=== PATIENT | female | born 1990 | race Hispanic/Latino ===

== ENCOUNTER 2018-11-01 22:20 | Emergency (ER) | payer SELFPAY ==
[~2018-11-01] VITALS: Ht 167.6 cm; Wt 56.7 kg
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
--- OUTSIDE RECORDS SUMMARY | 2018-11-01 22:25 | XMS REPORT | Summary of Care ---
Author Author [facility] Organization [facility] Address Unknown Phone Unavailable Encounter HQ Richard_jessica(FIN) [id number] Date(s): 04/06/16 - 04/07/16 [facility] [address] [place] [address]- Discharge Disposition: Elopement Attending Physician: Ravi Salvador MD Vital Signs Most recent to 1 oldest [Reference Range]: Height 170.18 cm (04/06/16 11:34 PM) Temperature Oral 98.6 DegF [96.4-99.1 DegF] (04/06/16 11:34 PM) Blood Pressure 119/78 mmHg [90-140/60-90 mmHg] (04/06/16 11:34 PM) Respiratory Rate 18 BRMIN [14-20 BRMIN] (04/06/16 11:34 PM) Peripheral Pulse 118 bpm Rate [60-100 bpm] *HI* (04/06/16 11:34 PM) Weight 70.909 kg (04/06/16 11:34 PM) Body Mass Index 24.48 m2 (04/06/16 11:34 PM) Problem List No data available for this section Allergies, Adverse Reactions, Alerts Substance Reaction Severity Status NKDA Active Medications acetaminophen 650 mg, 2 tab, Route: PO, Drug form: TAB, ONCE, Dosing Weight 70.909, kg, Priori ty: STAT, Start date: 04/06/16 23:46:00 IMAGING NURSE, Stop date: 04/06/16 23:46:00 IMAGING NURSE Notes: Do not exceed 4 gm/day. (Same as: Tylenol) Start Date: 04/06/16 Stop Date: 04/06/16 Status: Ordered diphtheria/pertussis, acel/tetanus adult 2 units-15.5 mcg-5 units/0.5 mL intramu scular suspension 0.5 mL, Route: IM, Drug Form: SUSP, Dosing Weight 70.909, kg, ONCE, STAT, Start date: 04/06/16 23:46:00 IMAGING NURSE, Stop date: 04/06/16 23:46:00 IMAGING NURSE Notes: (Tdap ) For Adolecent and Adult use For IM Use. Same as: Adacel (Tdap) Start Date: 04/06/16 Stop Date: 04/06/16 Status: Ordered Saline Flush 0.9% 10 mL, Route: IVP, Drug Form: INJ, Dosing Weight 70.909, kg, PRN, PRN Line Flush , Start date: 04/06/16 23:46:00 IMAGING NURSE, Duration: 30 day, Stop date: 05/06/16 23:45 :00 IMAGING NURSE Notes: Same as: BD Posiflush Sterile Start Date: 04/06/16 Stop Date: 04/07/16 Status: Discontinued Sodium Chloride 0.9% (Bolus) IV 1,000 mL, 2,000 ml/hr, Infuse Over: 0.5 hr, Route: IV, 1,000, Drug form: INJ, ON CE, Priority: STAT, Dosing Weight 70.909 kg, Start date: 04/06/16 23:46:00 IMAGING NURSE, Duration: 1 doses or times, Stop date: 04/06/16 23:46:00 IMAGING NURSE Start Date: 04/06/16 Stop Date: 04/06/16 Status: Ordered Results No data available for this section Immunizations No data available for this section Procedures No data available for this section Social History No data available for this section Assessment and Plan No data available for this section
--- OUTSIDE RECORDS SUMMARY | 2018-11-01 22:25 | XMS REPORT | CCD ---
Author Author Auto Generated Organization [facility] Address Unknown Phone Unavailable Care Team Providers Care Medical Communication Specialist Name Role Phone [place] CP Allergies, Adverse Reactions, Alerts Substance Reaction Status NKDA Active Medications Medication Instructions Start Date End Date Status Ambien 10 mg, 1 tab, Route: PO, Drug form: 04/15/2012 04/16/2012 Discontinued TAB, Bedtime, Dosing Weight 82.727, kg, PRN Insomnia, Start date: 04/15/12 2:20:00, Duration: 30 day, Stop date: 05/15/12 2:19:00 methylergonovine 0.2 mg, 1 mL, Route: IM, Drug form: 04/15/2012 04/16/2012 Discontinued INJ, PRN, Dosing Weight 82.727, kg, PRN Other -See Comment, Start date: 04/15/12 12:15:00, Duration: 30 day, Stop date: 05/15/12 13:14:00 ondansetron 4 mg, 2 mL, Route: IVP, Drug form: 04/15/2012 04/16/2012 Discontinued INJ, Q8H, Dosing Weight 82.727, kg, PRN Nausea & Vomiting, Start date: 04/15/12 12:15:00, Duration: 30 day, Stop date: 05/15/12 12:14:00 zolpidem 5 mg, 1 tab, Route: PO, Drug form: 04/15/2012 04/16/2012 Discontinued TAB, Bedtime, Dosing Weight 82.727, kg, PRN Sleep, Start date: 04/15/12 12:15:00, Duration: 30 day, Stop date: 05/15/12 12:14:00 Dermoplast 20% 1 spray, Route: TOP, PRN, Drug 04/15/2012 04/16/2012 Discontinued topical spray form: SPRY, PRN Irritation, Start date: 04/15/12 12:15:00, Duration: 30 day, Stop date: 05/15/12 13:14:00 lanolin topical 1 appl, Route: TOP, PRN, Drug form: 04/15/2012 04/16/2012 Discontinued OINT, PRN Other -See Comment, Start date: 04/15/12 12:15:00, Duration: 30 day, Stop date: 05/15/12 13:14:00 bisacodyl 10 mg, 1 supp, Route: OR, Drug 04/15/2012 04/16/2012 Discontinued form: SUPP, PRN, Dosing Weight 82.727, kg, PRN Other -See Comment, Start date: 04/15/12 12:15:00, Duration: 30 day, Stop date: 05/15/12 13:14:00 bisacodyl 15 mg, 3 tab, Route: PO, Drug form: 04/15/2012 04/16/2012 Discontinued ECTAB, Daily, Dosing Weight 82.727, kg, PRN Other -See Comment, Start date: 04/15/12 12:15:00, Duration: 30 day, Stop date: 05/15/12 12:14:00 docusate 100 mg, 1 cap, Route: PO, Drug 04/15/2012 04/16/2012 Discontinued form: CAP, BID, Dosing Weight 82.727, kg, PRN Constipation, Start date: 04/15/12 12:15:00, Duration: 30 day, Stop date: 05/15/12 12:14:00 Lactated Ringers IV 1,000 mL, Rate: 100 ml/hr, Infuse 04/15/2012 04/16/2012 Discontinued 1,000 mL over: 10 hr, Route: IV, kg, Total Volume: 1,000, Start date: 04/15/12 12:15:00, Duration: 30 day, Stop date: 05/15/12 12:14:00, PRN to maintain IV access Lactated Ringers 20 unit, 1,000 mL, Rate: 125 ml/hr, 04/15/2012 04/16/2012 Discontinued 1000ml+Pitocin 20 Infuse over: 8 hr, Dosing Weight units IV (Premix) 20 82.727, kg, Route: IV, Total unit Volume: 1,000 mL, Start date: 04/15/12 12:15:00, Duration: 2 day, Stop date: 04/17/12 12:14:00, Replace Every: 8 hr M-M-R II 0.5 ml, Route: SUB-Q, Drug Form: 04/15/2012 04/16/2012 Discontinued PDR/INJ, Dosing Weight 82.727, kg, ONCALL, Give only if patient rubella non-immune, Start date: 04/15/12 13:00:00, Duration: 1 doses or times acetaminophen 650 mg, 2 tab, Route: PO, Drug 04/15/2012 04/16/2012 Discontinued form: TAB, Q4H, Dosing Weight 82.727, kg, PRN Headache, Start date: 04/15/12 12:15:00, Duration: 30 day, Stop date: 05/15/12 12:14:00 ibuprofen 800 mg, 1 tab, Route: PO, Drug 04/15/2012 04/16/2012 Discontinued form: TAB, Q8H, Dosing Weight 82.727, kg, PRN Pain, Start date: 04/15/12 12:15:00, Duration: 30 day, Stop date: 05/15/12 12:14:00 1 tab, Route: PO, Drug Form: TAB, 04/16/2012 04/16/2012 Discontinued Multivitamins oral Dosing Weight 82.727, kg, Daily, tablet Start date: 04/16/12 9:00:00, Duration: 30 day, Stop date: 05/15/12 9:00:00 acetaminophen-hydroc 1 tab, Route: PO, Drug Form: TAB, 04/15/2012 04/16/2012 Discontinued odone 325 mg-5 mg Dosing Weight 82.727, kg, Q4H, PRN oral tablet Pain Score 1-3, Start date: 04/15/12 12:15:00, Duration: 30 day, Stop date: 05/15/12 12:14:00 acetaminophen-hydroc 2 tab, Route: PO, Drug Form: TAB, 04/15/2012 04/16/2012 Discontinued odone 325 mg-5 mg Dosing Weight 82.727, kg, Q4H, PRN oral tablet Pain Score 4-6, Start date: 04/15/12 12:15:00, Duration: 30 day, Stop date: 05/15/12 12:14:00 ondansetron 4 mg, 2 mL, Route: IVP, Drug form: 04/15/2012 04/15/2012 Discontinued INJ, Q8H, Dosing Weight 82.727, kg, PRN Nausea & Vomiting, Start date: 04/15/12 2:19:00, Duration: 30 day, Stop date: 05/15/12 2:18:00 methylergonovine 0.2 mg, 1 mL, Route: IM, Drug form: 04/15/2012 04/15/2012 Discontinued INJ, ONCALL, Dosing Weight 82.727, kg, Start date: 04/15/12 3:00:00, Duration: 30 day, Stop date: 05/15/12 3:59:00 lidocaine 1% 20 ml, Route: PERCUT, Drug Form: 04/15/2012 04/15/2012 Discontinued INJ, Dosing Weight 82.727, kg, PRN, PRN Other -See Comment, Start date: 04/15/12 2:19:00, Duration: 1 doses or times, Stop date: Limited # of times misoprostol 1,000 microgram, 5 tab, Route: OR, 04/15/2012 04/15/2012 Discontinued Drug form: TAB, ONCALL, Dosing Weight 82.727, kg, Start date: 04/15/12 3:00:00, Duration: 1 doses or times famotidine 20 mg, 2 mL, Route: IVP, Drug form: 04/15/2012 04/15/2012 Discontinued INJ, ONCALL, Dosing Weight 82.727, kg, Start date: 04/15/12 3:00:00, Duration: 30 day, Stop date: 05/15/12 3:59:00 Lactated Ringers 20 unit, 1,000 mL, Rate: 125 ml/hr, 04/15/2012 04/16/2012 Discontinued 1000ml+Pitocin 20 Infuse over: 8 hr, Dosing Weight units IV (Premix) 20 82.727, kg, Route: IV, Total unit Volume: 1,000 mL, Start date: 04/15/12 2:19:00, Duration: 2 day, Stop date: 04/17/12 2:18:00, Replace Every: 8 hr carboprost 250 microgram, 1 mL, Route: IM, 04/15/2012 04/15/2012 Discontinued Drug form: INJ ONCALL, Dosing Weight 82.727, kg, Start date: 04/15/12 3:00:00, Duration: 30 day, Stop date: 05/15/12 3:59:00 oxytocin-add to 20 unit, Route: INJ, Drug form: 04/15/2012 04/15/2012 Deleted current IV SOLNYOSVANYALL, Dosing Weight 82.727, kg, Start date: 04/15/12 3:00:00, Duration: 2 day, Stop date: 04/17/12 2:59:00 metoclopramide 10 mg, 2 mL, Route: IVP, Drug form: 04/15/2012 04/15/2012 Discontinued INJ ONCALL, Dosing Weight 82.727, kg, Start date: 04/15/12 3:00:00, Duration: 30 day, Stop date: 05/15/12 3:59:00 citric acid-sodium 30 ml, Route: PO, Drug Form: SOLN, 04/15/2012 04/15/2012 Discontinued citrate Dosing Weight 82.727, kg, ONCALL, Start date: 04/15/12 3:00:00, Duration: 30 day, Stop date: 05/15/12 3:59:00 terbutaline 0.25 mg, 0.25 mL, Route: SUB-Q, 04/15/2012 04/15/2012 Discontinued Drug form: INJ, PRN, Dosing Weight 82.727, kg, PRN Other -See Comment, Start date: 04/15/12 2:19:00, Duration: 1 doses or times, Stop date: Limited # of times butorphanol 1 mg, 1 mL, Route: IVP, Drug form: 04/15/2012 04/15/2012 Discontinued INJ, Q2H, Dosing Weight 82.727, kg, PRN Pain Score 1-5, Start date: 04/15/12 2:19:00, Duration: 30 day, Stop date: 05/15/12 2:18:00 ibuprofen 800 mg, 1 tab, Route: PO, Drug 04/15/2012 04/15/2012 Discontinued form: TAB, Q8H, Dosing Weight 82.727, kg, PRN Other -See Comment, Start date: 04/15/12 2:19:00, Duration: 30 day, Stop date: 05/15/12 2:18:00 acetaminophen-hydroc 2 tab, Route: PO, Drug Form: TAB, 04/15/2012 04/15/2012 Discontinued odone 325 mg-5 mg Dosing Weight 82.727, kg, Q4H, PRN oral tablet Pain Score 4-6, Start date: 04/15/12 2:19:00, Duration: 30 day, Stop date: 05/15/12 2:18:00 acetaminophen-hydroc 1 tab, Route: PO, Drug Form: TAB, 04/15/2012 04/15/2012 Discontinued odone 325 mg-5 mg Dosing Weight 82.727, kg, Q4H, PRN oral tablet Pain Score 1-3, Start date: 04/15/12 2:19:00, Duration: 30 day, Stop date: 05/15/12 2:18:00 butorphanol 2 mg, 1 mL, Route: IVP, Drug form: 04/15/2012 04/15/2012 Discontinued INJ, Q2H, Dosing Weight 82.727, kg, PRN Pain Score 6-10, Start date: 04/15/12 2:19:00, Duration: 30 day, Stop date: 05/15/12 2:18:00 Lactated Ringers IV 1,000 mL, Rate: 125 ml/hr, Infuse 04/15/2012 04/15/2012 Discontinued 1,000 mL over: 8 hr, Route: IV, kg, Total Volume: 1,000, Start date: 04/15/12 2:19:00, Duration: 30 day, Stop date: 05/15/12 2:18:00 Lactated Ringers 1,000 mL, Rate: 100 ml/hr, Infuse 04/15/2012 04/15/2012 Discontinued Injection IV 1,000 over: 10 hr, Route: IV, kg, Total mL Volume: 1,000, Bolus for regional anesthesia per unit protocol, Start date: 04/15/12 2:19:00, Duration: 30 day, Stop date: 05/15/12 2:18:00 Ambien 10 mg oral 10 mg, 1 tab, PO, Bedtime, PRN, for 04/14/2012 Ordered tablet sleep, Substitution Allowed, TAB 1 oral Substitution Allowed, Maintenance 04/14/2012 Ordered capsule Lactated Ringers 20 unit, 1,000 mL, Rate: Titrate, 04/15/2012 04/16/2012 Discontinued 1000ml+Pitocin 20 Dosing Weight 82.727, kg, Route: units IV (Premix IV, Total Volume: 1,000 mL, Start Titrate) 20 unit date: 04/15/12 3:36:00, Duration: 2 day, Stop date: 04/17/12 3:35:00, Replace Every: 24 hr ibuprofen 800 mg 800 mg, 1 tab, PO, Q8H, PRN, 30 04/16/2012 Ordered oral tablet tab, Pain, Substitution Allowed, TAB Vital Signs Most recent to oldest [Reference Range]: 1 Height 170.18 cm (04/15/2012 02:15:00) Weight 82.727 kg (04/15/2012 02:15:00) Results BLOOD BANK RESULTS Most recent to oldest [Reference Range]: 1 2 ABO/Rh B POS *Unknown* (04/15/2012 02:15:00) Antibody Scrn Negative (04/15/2012 02:15:00) Rhig Reqd See Note 1 (04/15/2012 02:15:00) 1Result Comment: 04/15/2012 03:16 [id number] This patient is not a candidate for Rh(O)D immune globulin. HEMATOLOGY Most recent to oldest [Reference Range]: 1 2 WBC [3.7-10.4 K/CMM] 9.8 K/CMM (04/16/2012 06:20:00) 10.9 K/CMM *HI* (04/15/2012 02:15:00) RBC [4.20-5.40 M/CMM] 3.93 M/CMM *LOW* (04/16/2012 06:20:00) 4.67 M/CMM (04/15/2012 02:15:00) Hgb [12.0-16.0 g/dL] 11.1 g/dL *LOW* (04/16/2012 06:20:00) 13.0 g/dL (04/15/2012 02:15:00) Hct [36.0-48.0 %] 34.0 % *LOW* (04/16/2012 06:20:00) 39.7 % (04/15/2012 02:15:00) MCV [81.0-99.0 fL] 86.4 fL (04/16/2012 06:20:00) 84.9 fL (04/15/2012 02:15:00) MCH [27.0-31.0 pg] 28.3 pg (04/16/2012 06:20:00) 27.9 pg (04/15/2012 02:15:00) MCHC [32.0-36.0 g/dL] 32.7 g/dL (04/16/2012 06:20:00) 32.8 g/dL (04/15/2012 02:15:00) RDW [11.5-14.5 %] 16.9 % *HI* (04/16/2012 06:20:00) 16.5 % *HI* (04/15/2012 02:15:00) Platelet [133-450 K/CMM] 212 K/CMM (04/16/2012 06:20:00) 262 K/CMM (04/15/2012 02:15:00) MPV [7.4-10.4 fL] 7.6 fL (04/16/2012 06:20:00) 7.8 fL (04/15/2012 02:15:00) Segs [45.0-75.0 %] 64.6 % (04/16/2012 06:20:00) 75.8 % *HI* (04/15/2012 02:15:00) Lymphocytes [20.0-40.0 %] 24.7 % (04/16/2012 06:20:00) 17.2 % *LOW* (04/15/2012 02:15:00) Monocytes [2.0-12.0 %] 9.0 % (04/16/2012 06:20:00) 6.3 % (04/15/2012 02:15:00) Eosinophils [0.0-4.0 %] 1.4 % (04/16/2012 06:20:00) 0.5 % (04/15/2012 02:15:00) Basophils [0.0-1.0 %] 0.3 % (04/16/2012 06:20:00) 0.2 % (04/15/2012 02:15:00) Segs-Bands # [1.5-8.1 K/CMM] 6.3 K/CMM (04/16/2012 06:20:00) 8.2 K/CMM *HI* (04/15/2012 02:15:00) Lymphocytes # [1.0-5.5 K/CMM] 2.4 K/CMM (04/16/2012 06:20:00) 1.9 K/CMM (04/15/2012 02:15:00) Monocytes # [0.0-0.8 K/CMM] 0.9 K/CMM *HI* (04/16/2012 06:20:00) 0.7 K/CMM (04/15/2012 02:15:00) Eosinophils # [0.0-0.5 K/CMM] 0.1 K/CMM (04/16/2012 06:20:00) 0.1 K/CMM (04/15/2012 02:15:00) Basophils # [0.0-0.2 K/CMM] 0.0 K/CMM (04/16/2012 06:20:00) 0.0 K/CMM (04/15/2012 02:15:00) IMMUNOLOGY Most recent to oldest [Reference Range]: 1 2 RPR [Non Reactive] Non Reactive (04/15/2012 02:15:00) Hep Bs Ag [Negative] Negative *NA* (04/15/2012 02:15:00)
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
--- OUTSIDE RECORDS SUMMARY | 2018-11-01 22:25 | XMS REPORT | Summary of Care ---
Author Author [facility] Organization [facility] Address Unknown Phone Unavailable Encounter TG Escalera(LAUREN) [id number] Date(s): 02/23/17 - 02/23/17 [facility] [address] [place] [address]- Discharge Diagnosis: Follicular cyst of ovary, unspecified side Discharge Diagnosis: Acute pelvic pain, female Discharge Disposition: Home or Self Care Attending Physician: Shaheen Pacheco MD Vital Signs 1 2 3 Most recent to oldest [Reference Range]: 170.18 cm (02/23/17 12:47 PM) Height 98 DegF (02/23/17 8:01 PM) 98.4 DegF (02/23/17 7:01 PM) Temperature Oral [96.4-99.1 DegF] 122/71 mmHg (02/23/17 8:01 PM) 139/60 mmHg (02/23/17 7:01 PM) 118/75 mmHg (02/23/17 3:53 PM) Blood Pressure [90-140/60-90 mmHg] 18 BRMIN (02/23/17 8:01 PM) 18 BRMIN (02/23/17 7:01 PM) 20 BRMIN (02/23/17 12:47 PM) Respiratory Rate [14-20 BRMIN] 72 bpm (02/23/17 8:01 PM) 74 bpm (02/23/17 7:01 PM) 90 bpm (02/23/17 12:47 PM) Peripheral Pulse Rate [60-100 bpm] 59.091 kg (02/23/17 12:47 PM) Weight 20.4 m2 (02/23/17 12:47 PM) Body Mass Index Problem List Condition Effective Dates Status Health Status Informant Excessive vaginal Active bleeding(Confirmed) Allergies, Adverse Reactions, Alerts Substance Reaction Severity Status NKDA Active Medications ibuprofen 800 mg oral tablet 800 mg=1 tab, PO, Q8H, PRN Fever or Pain, Take with food, X 10 day, # 30 tab, 0 Refill(s) Start Date: 02/23/17 Stop Date: 03/05/17 Status: Ordered ketOROLAC 30 mg, 1 mL, Route: IVP, Drug form: INJ, ONCE, Dosing Weight 59.091, kg, Priorit y: STAT, Start date: 02/23/17 17:53:00 POST ANESTHESIA NURSE, Stop date: 02/23/17 17:53:00 POST ANESTHESIA NURSE Notes: (Same as:Toradol) IV bolus must be given >15 seconds. Give IM administration slowly and deeply into the muscle.Not for use > 4 days MEDICATION WASTE Product Size: 30 mgProduct Wasted: ___ mg Start Date: 02/23/17 Stop Date: 02/23/17 Status: Completed ketOROLAC 30 mg, Route: IVP, Drug form: INJ, ONCE, Dosing Weight 59.091, kg, Priority: STA T, Start date: 02/23/17 14:14:00 POST ANESTHESIA NURSE, Stop date: 02/23/17 14:14:00 POST ANESTHESIA NURSE Start Date: 02/23/17 Stop Date: 02/23/17 Status: Completed morphine Sulfate 4 mg, 1 mL, Route: IVP, Drug form: SOLN, ONCE, Dosing Weight 59.091, kg, Priorit y: STAT, Start date: 02/23/17 16:16:00 POST ANESTHESIA NURSE, Stop date: 02/23/17 16:16:00 POST ANESTHESIA NURSE Notes: (Same as:MORPhine Sulfate) Start Date: 02/23/17 Stop Date: 02/23/17 Status: Completed [place] 5/325 oral tablet 1 tab, Route: PO, Drug Form: TAB, Dosing Weight 59.091, kg, ONCE, STAT, Start da te: 02/23/17 19:18:00 POST ANESTHESIA NURSE, Stop date: 02/23/17 19:18:00 POST ANESTHESIA NURSE Notes: (Same as: Mcnabb 325/5) Do not exceed 4gm/day of acetaminophen. Start Date: 02/23/17 Stop Date: 02/23/17 Status: Completed NS (Bolus) IV 1,000 mL, 1,000 ml/hr, Infuse Over: 1 hr, Route: IV, 1,000, Drug form: INJ, ONCE , Priority: STAT, Dosing Weight 59.091 kg, Start date: 02/23/17 16:16:00 POST ANESTHESIA NURSE, St op date: 02/23/17 16:16:00 POST ANESTHESIA NURSE Start Date: 02/23/17 Stop Date: 02/23/17 Status: Completed Saline Flush 0.9% 10 mL, Route: IVP, Drug Form: INJ, Dosing Weight 68.182, kg, PRN, PRN Line Flush , Start date: 02/23/17 12:52:00 POST ANESTHESIA NURSE, Duration: 30 day, Stop date: 03/25/17 12:51 :00 POST ANESTHESIA NURSE Notes: Same as: BD Posiflush Sterile Start Date: 02/23/17 Stop Date: 02/23/17 Status: Discontinued Tylenol with Codeine #3 oral tablet 1 - 2 tab, PO, Q6H, PRN Pain, X 4 day, # 32 tab, 0 Refill(s) Start Date: 02/23/17 Stop Date: 02/27/17 Status: Ordered Zofran 4 mg, 2 mL, Route: IVP, Drug form: INJ, ONCE, Dosing Weight 59.091, kg, Priority : STAT, Start date: 02/23/17 16:16:00 POST ANESTHESIA NURSE, Stop date: 02/23/17 16:16:00 POST ANESTHESIA NURSE Notes: (Same as: Zofran) MEDICATION WASTE Product Size: 4 mgProduct Was kim: ___ mg Start Date: 02/23/17 Stop Date: 02/23/17 Status: Completed Results ELECTROLYTES Most recent to 1 oldest [Reference Range]: Sodium Lvl [135-145 137 mEq/L mEq/L] (02/23/17 1:07 PM) Potassium Lvl 3.8 mEq/L [3.5-5.1 mEq/L] (02/23/17 1:07 PM) Chloride Lvl [95-109 102 mEq/L mEq/L] (02/23/17 1:07 PM) CO2 [24-32 mEq/L] 30 mEq/L (02/23/17 1:07 PM) AGAP [10.0-20.0 8.8 mEq/L mEq/L] *LOW* (02/23/17 1:07 PM) CHEM PANEL Most recent to 1 oldest [Reference Range]: Creatinine Lvl 0.74 mg/dL [0.50-1.40 mg/dL] (02/23/17 1:07 PM) eGFR 111 mL/min/1.73m2 1 *NA* (02/23/17 1:07 PM) BUN [7-22 mg/dL] 7 mg/dL (02/23/17 1:07 PM) B/C Ratio [6-25] 9 (02/23/17 1:07 PM) Glucose Lvl [70-99 94 mg/dL mg/dL] (02/23/17 1:07 PM) Total Protein 9.0 g/dL [6.4-8.4 g/dL] *HI* (02/23/17 1:07 PM) Albumin Lvl [3.5-5.0 4.4 g/dL g/dL] (02/23/17 1:07 PM) Globulin [2.7-4.2 4.6 g/dL g/dL] *HI* (02/23/17 1:07 PM) A/G Ratio [0.7-1.6] 1.0 (02/23/17 1:07 PM) Calcium Lvl 9.1 mg/dL [8.5-10.5 mg/dL] (02/23/17 1:07 PM) ALT [0-65 unit/L] 16 unit/L (02/23/17 1:07 PM) AST [0-37 unit/L] 14 unit/L (02/23/17 1:07 PM) Alk Phos [39-136 72 unit/L unit/L] (02/23/17 1:07 PM) Bili Total [0.2-1.3 0.4 mg/dL mg/dL] (02/23/17 1:07 PM) 1Result Comment: The eGFR is calculated using [...] [Reference Range]: S Preg [Negative] Negative *NA* (02/23/17 1:07 PM) URINE AND STOOL Most recent to 1 oldest [Reference Range]: UA Turbidity [Clear] Clear (02/23/17 1:46 PM) UA Color LYYELLOW *NA* (02/23/17 1:46 PM) UA pH [5.0-8.0] 8.0 (02/23/17 1:46 PM) UA Spec Grav 1.004 [<=1.030] (02/23/17 1:46 PM) UA Glucose [Negative Negative mg/dL mg/dL] *NA* (02/23/17 1:46 PM) UA Blood [Negative] Negative (02/23/17 1:46 PM) UA Ketones Negative *NA* (02/23/17 1:46 PM) UA Protein [Negative Negative mg/dL mg/dL] (02/23/17 1:46 PM) UA Urobilinogen <=1.0 mg/dL [0.1-1.0 mg/dL] *NA* (02/23/17 1:46 PM) UA Bili [Negative] Negative *NA* (02/23/17 1:46 PM) UA Leuk Est Trace [Negative] *ABN* (02/23/17 1:46 PM) UA Nitrite Negative [Negative] (02/23/17 1:46 PM) UA WBC [0-5 /HPF] 3 /HPF (02/23/17 1:46 PM) UA RBC [0-2 /HPF] <1 /HPF (02/23/17 1:46 PM) UA Sq Epi [Few /LPF] Moderate /LPF *ABN* (02/23/17 1:46 PM) UA Mucus [None Seen Few /LPF /LPF] *NA* (02/23/17 1:46 PM) HEMATOLOGY Most recent to 1 oldest [Reference Range]: WBC [3.7-10.4 K/CMM] 8.6 K/CMM (02/23/17 1:07 PM) RBC [4.20-5.40 5.13 M/CMM M/CMM] (02/23/17 1:07 PM) Hgb [12.0-16.0 g/dL] 14.4 g/dL (02/23/17 1:07 PM) Hct [36.0-48.0 %] 42.4 % (02/23/17 1:07 PM) MCV [80.0-98.0 fL] 82.7 fL (02/23/17 1:07 PM) MCH [27.0-31.0 pg] 28.0 pg (02/23/17 1:07 PM) MCHC [32.0-36.0 33.8 g/dL g/dL] (02/23/17 1:07 PM) RDW [11.5-14.5 %] 13.0 % (02/23/17 1:07 PM) Platelet [133-450 349 K/CMM K/CMM] (02/23/17 1:07 PM) MPV [7.4-10.4 fL] 7.5 fL (02/23/17 1:07 PM) Segs [45.0-75.0 %] 79.2 % *HI* (02/23/17 1:07 PM) Lymphocytes 15.6 % [20.0-40.0 %] *LOW* (02/23/17 1:07 PM) Monocytes [2.0-12.0 3.9 % %] (02/23/17 1:07 PM) Eosinophils [0.0-4.0 0.9 % %] (02/23/17 1:07 PM) Basophils [0.0-1.0 0.4 % %] (02/23/17 1:07 PM) Segs-Bands # 6.8 K/CMM [1.5-8.1 K/CMM] (02/23/17 1:07 PM) Lymphocytes # 1.3 K/CMM [1.0-5.5 K/CMM] (02/23/17 1:07 PM) Monocytes # [0.0-0.8 0.3 K/CMM K/CMM] (02/23/17 1:07 PM) Eosinophils # 0.1 K/CMM [0.0-0.5 K/CMM] (02/23/17 1:07 PM) MOLECULAR DIAGNOSTIC Most recent to 1 oldest [Reference Range]: Source APTIMA Vaginal *NA* (02/23/17 7:25 PM) N gonorrhea by Amp Negative Det (APTIMA) *NA* [Negative] (02/23/17 7:25 PM) C trachomatis by Amp Negative Det (APTIMA) *NA* [Negative] (02/23/17 7:25 PM) Immunizations No data available for this section Procedures No data available for this section Social History Social History Type Response Alcohol Never Smoking Status Never smoker; Exposure to Tobacco Smoke None; Cigarette Smoking Last 365 Days No; Reg Smoking Cessation Counseling No Assessment and Plan No data available for this section
--- OUTSIDE RECORDS SUMMARY | 2018-11-01 22:25 | XMS REPORT | Summary of Care ---
Author Author [facility] Organization [facility] Address Unknown Phone Unavailable Encounter TG Escalera(LAUREN) [id number] Date(s): 06/15/16 - 06/15/16 [facility] [address] [employer] Services provided by [employer] [facility] [employer] [place] [address]- Discharge Diagnosis: Excessive vaginal bleeding Discharge Disposition: Home or Self Care Attending Physician: Emmanuel Dill MD Vital Signs Most recent to 1 2 oldest [Reference Range]: Temperature Oral 98.5 DegF 97.8 DegF [96.4-99.1 DegF] (06/15/16 10:07 PM) (06/15/16 4:04 PM) Blood Pressure 116/74 mmHg 105/75 mmHg [90-140/60-90 mmHg] (06/15/16 10:07 PM) (06/15/16 4:04 PM) Respiratory Rate 16 BRMIN 18 BRMIN [14-20 BRMIN] (06/15/16 10:07 PM) (06/15/16 4:04 PM) Peripheral Pulse 62 bpm 79 bpm Rate [60-100 bpm] (06/15/16 10:07 PM) (06/15/16 4:04 PM) Problem List Condition Effective Dates Status Health Status Informant Excessive vaginal Active bleeding(Confirmed) Allergies, Adverse Reactions, Alerts Substance Reaction Severity Status NKDA Active Medications No Known Medications Results ELECTROLYTES Most recent to 1 oldest [Reference Range]: Sodium Lvl [135-145 140 mEq/L mEq/L] (06/15/16 5:40 PM) Potassium Lvl 3.9 mEq/L [3.5-5.1 mEq/L] (06/15/16 5:40 PM) Chloride Lvl [95-109 102 mEq/L mEq/L] (06/15/16 5:40 PM) CO2 [24-32 mEq/L] 30 mEq/L (06/15/16 5:40 PM) AGAP [10.0-20.0 11.9 mEq/L mEq/L] (06/15/16 5:40 PM) CHEM PANEL Most recent to 1 oldest [Reference Range]: Creatinine Lvl 0.93 mg/dL [0.50-1.40 mg/dL] (06/15/16 5:40 PM) eGFR 84 mL/min/1.73m2 1 *NA* (06/15/16 5:40 PM) BUN [7-22 mg/dL] 9 mg/dL (06/15/16 5:40 PM) Glucose Lvl [70-99 109 mg/dL mg/dL] *HI* (06/15/16 5:40 PM) Calcium Lvl 9.4 mg/dL [8.5-10.5 mg/dL] (06/15/16 5:40 PM) 1Result Comment: The eGFR is calculated [...] be mul tiplied by the estimated BMI. URINE CHEM Most recent to 1 oldest [Reference Range]: U Preg [Negative] Negative (06/15/16 5:40 PM) HEMATOLOGY Most recent to 1 oldest [Reference Range]: WBC [3.7-10.4 K/CMM] 6.2 K/CMM (06/15/16 5:40 PM) RBC [4.20-5.40 5.22 M/CMM M/CMM] (06/15/16 5:40 PM) Hgb [12.0-16.0 g/dL] 14.4 g/dL (06/15/16 5:40 PM) Hct [36.0-48.0 %] 42.6 % (06/15/16 5:40 PM) MCV [80.0-98.0 fL] 81.7 fL (06/15/16 5:40 PM) MCH [27.0-31.0 pg] 27.5 pg (06/15/16 5:40 PM) MCHC [32.0-36.0 33.7 g/dL g/dL] (06/15/16 5:40 PM) RDW [11.5-14.5 %] 13.5 % (06/15/16 5:40 PM) Platelet [133-450 311 K/CMM K/CMM] (06/15/16 5:40 PM) MPV [7.4-10.4 fL] 7.4 fL (06/15/16 5:40 PM) Segs [45.0-75.0 %] 68.7 % (06/15/16 5:40 PM) Lymphocytes 19.4 % [20.0-40.0 %] *LOW* (06/15/16 5:40 PM) Monocytes [2.0-12.0 9.6 % %] (06/15/16 5:40 PM) Eosinophils [0.0-4.0 2.0 % %] (06/15/16 5:40 PM) Basophils [0.0-1.0 0.3 % %] (06/15/16 5:40 PM) Segs-Bands # 4.3 K/CMM [1.5-8.1 K/CMM] (06/15/16 5:40 PM) Lymphocytes # 1.2 K/CMM [1.0-5.5 K/CMM] (06/15/16 5:40 PM) Monocytes # [0.0-0.8 0.6 K/CMM K/CMM] (06/15/16 5:40 PM) Eosinophils # 0.1 K/CMM [0.0-0.5 K/CMM] (06/15/16 5:40 PM) Immunizations No data available for this section Procedures No data available for this section Social History Social History Type Response Smoking Status Never smoker; Exposure to Tobacco Smoke None; Cigarette Smoking Last 365 Days No; Reg Smoking Cessation Counseling No Assessment and Plan No data available for this section
--- OUTSIDE RECORDS SUMMARY | 2018-11-01 22:25 | XMS REPORT ---
Author Author [facility] Address Unknown Phone Unavailable Care Team Providers Care [employer] Name Role Phone Unavailable Unavailable Problems This patient has no known problems. Allergies, Adverse Reactions, Alerts This patient has no known allergies or adverse reactions. Medications This patient has no known medications. Encounters Start Date/Time End Date/Time Encounter Type Admission Type Attending Clinicians Care Facility Care Department Encounter ID 2018-05-04 20:09:00 2018-05-04 20:09:00 Emergency E [facility] [id number] 2016-10-05 00:00:00 2016-10-06 00:00:00 Outpatient [facility] [id number] 2016-08-24 00:00:00 2016-08-25 00:00:00 Outpatient [facility] [id number]
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
--- OUTSIDE RECORDS SUMMARY | 2018-11-01 22:25 | XMS REPORT | Summary of Care ---
Author Author [facility] Organization [facility] Address Unknown Phone Unavailable Encounter TG Escalera(LAUREN) [id number] Date(s): 02/03/17 - 02/03/17 [facility] [address] Professional Services provided by [employer] [place] [address]- Discharge Diagnosis: AC separation Discharge Disposition: Home or Self Care Attending Physician: Joce Gillis MD Vital Signs 1 2 3 Most recent to oldest [Reference Range]: 98.7 DegF (02/03/17 2:52 PM) 99 DegF (02/03/17 12:31 PM) Temperature Oral [96.4-99.1 DegF] 118/65 mmHg (02/03/17 4:43 PM) 122/81 mmHg (02/03/17 2:52 PM) 104/67 mmHg (02/03/17 12:31 PM) Blood Pressure [90-140/60-90 mmHg] 16 BRMIN (02/03/17 4:43 PM) 16 BRMIN (02/03/17 2:52 PM) 18 BRMIN (02/03/17 12:31 PM) Respiratory Rate [14-20 BRMIN] 66 bpm (02/03/17 4:43 PM) 67 bpm (02/03/17 2:52 PM) 66 bpm (02/03/17 12:31 PM) Peripheral Pulse Rate [60-100 bpm] Problem List Condition Effective Dates Status Health Status Informant Excessive vaginal Active bleeding(Confirmed) Allergies, Adverse Reactions, Alerts Substance Reaction Severity Status NKDA Active Medications Dilaudid 0.5 mg, Route: IV, ONCE, Dosing Weight 68.182, kg, Start date: 02/03/17 12:48:00 ROOF FOREMAN, Stop date: 02/03/17 12:48:00 ROOF FOREMAN Start Date: 02/03/17 Stop Date: 02/03/17 Status: Discontinued ibuprofen 600 mg, Route: PO, ONCE, Dosing Weight 68.182, kg, Priority: STAT, Start date: 1 04/06/16 16:01:00 ROOF FOREMAN, Stop date: 02/03/17 16:01:00 ROOF FOREMAN Start Date: 02/03/17 Stop Date: 02/03/17 Status: Completed morphine Sulfate 4 mg, Route: IVP, ONCE, Dosing Weight 68.182, kg, Priority: STAT, Start date: 12:49:00 ROOF FOREMAN, Stop date: 02/03/17 12:49:00 ROOF FOREMAN Start Date: 02/03/17 Stop Date: 02/03/17 Status: Discontinued [place] 10/325 oral tablet 1 tab, Route: PO, Dosing Weight 68.182, kg, ONCE, Start date: 02/03/17 12:55:00 ROOF FOREMAN, Stop date: 02/03/17 12:55:00 ROOF FOREMAN Start Date: 02/03/17 Stop Date: 02/03/17 Status: Completed tramadol 50 mg, Route: PO, Drug form: TAB, ONCE, Dosing Weight 68.182, kg, > 50 kg, Priority: STAT, Start date: 02/03/17 12:48:00 ROOF FOREMAN, Stop date: 02/03/17 12:48:00 ROOF FOREMAN Start Date: 02/03/17 Stop Date: 02/03/17 Status: Completed tramadol 50 mg oral tablet 50 mg=1 tab, PO, Q6H, PRN Pain, X 5 day, # 20 tab, 0 Refill(s) Start Date: 02/03/17 Stop Date: 02/08/17 Status: Ordered Zofran 4 mg, Route: IVP, Drug form: INJ, ONCE, Dosing Weight 68.182, kg, Priority: STAT , Start date: 02/03/17 12:48:00 ROOF FOREMAN, Stop date: 02/03/17 12:48:00 ROOF FOREMAN Start Date: 02/03/17 Stop Date: 02/03/17 Status: Discontinued Results No data available for this section Immunizations No data available for this section Procedures No data available for this section Social History Social History Type Response Smoking Status Never smoker; Exposure to Tobacco Smoke None; Cigarette Smoking Last 365 Days No; Reg Smoking Cessation Counseling No Assessment and Plan No data available for this section
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
== END 2018-11-01 23:25 | disposition home or self-care (01) ==
LOC: FSED 22:20
DX: R10.32 Left lower quadrant pain (principal); R11.0 Nausea; R19.7 Diarrhea, unspecified
CPT/HCPCS: 80053; 81003; 81025; 85025; 99283